=== PATIENT | female | born 1990 | race Two or more races ===

== ENCOUNTER 2021-04-18 09:21 | Inpatient (IN) | payer OTHER ==
[~2021-04-18] VITALS: Ht 157.5 cm; Wt 58.1 kg
[2021-04-18] MEDS ORDERED: FEOSOL325 MG PO (10:11)
[2021-04-18] MEDS ORDERED: PRENATAL TABLE1 EAC1 PO (10:11)
== END 2021-04-20 16:12 | disposition home or self-care (01) | DRG 807 ==
LOC: LDR 09:21 → OB/GYN 14:22
PROVIDERS: ADMIT Obstetrics & Gynecology; ATTEND Obstetrics & Gynecology
PROC: 10E0XZZ Delivery of Products of Conception, External Approach (ICD-10-PCS; principal; 2021-04-18)
PROC: 0KQM0ZZ Repair Perineum Muscle, Open Approach (ICD-10-PCS; 2021-04-18)
PROC: 4A1HXFZ Monitoring of Products of Conception, Cardiac Rhythm, External Approach (ICD-10-PCS; 2021-04-18)
DX: O70.1 Second degree perineal laceration during delivery (principal); Z37.0 Single live birth; Z3A.38 38 weeks gestation of pregnancy; Z20.822 Contact with and (suspected) exposure to COVID-19